=== PATIENT | female | born 1940 | race Caucasian/White ===

== ENCOUNTER 2020-08-27 06:47 | Observation (INO) ==
[2020-08-27] MEDS ORDERED: METOPROLOL TARTRATE 1 MG/ML AMPUL IV ONE (07:12)
[2020-08-27 07:21] LABS: Hematocrit 40.2 % (37.0-47.0); Mean Cell Volume 90.7 fl (78-100); Mean Corpuscular Hemoglobin 29.3 pg (27-31); Mean Corpuscular Hgb Conc 32.3 g/dl (32-36); Mean Platelet Volume 9.7 fl (8-12.5); Neutrophil # 10.3 K/mm3 (1.3-6.0); Neutrophil % 80.3 % (42-75.0); Platelet Count 278 K/mm3 (150-450); Red Blood Count 4.43 M/mm3 (4.2-5.4); Red Cell Distribution Width 13.5 % (11.5-14.0); White Blood Count 12.9 K/mm3 (4.0-10.5)
[2020-08-27 07:26] LABS: Prothrombin Time (Patient) 10.9 Seconds (9.1-10.7)
[2020-08-27 07:29] LABS: INR 1.05 INR (0.92-1.08); Partial Thrombolplastin Time 27.2 Seconds (24-32)
[2020-08-27 07:37] LABS: ALT 20 U/L (19-67); AST 15 U/L (0-48); Albumin * 3.6 gm/dl (3.4-5.0); Alkaline Phosphatase * 137 U/L (50-170); Anion Gap 15.9 mmol/L (6.8-13.8); BNP * 1270 pg/mL (5-550); BUN/Creatinine Ratio 18.4 (9.0-21.6); Bilirubin, Total 0.9 mg/dL (0.0-1.1); Blood Urea Nitrogen 16 mg/dL (3-23); Ca. Corrected For Albumin 8.8 mg/dL (8.4-10.2); Calcium * 8.8 mg/dL (7.9-10.9); Carbon Dioxide 22.9 mmol/L (24-32.6); Chloride 104 mmol/L (97-106); Glucose * 140 mg/dL (70-110); Potassium 3.8 mmol/L (3.4-4.6); Sodium 139 mmol/L (132-142); Total Protein 7.6 gm/dL (6.2-8.2); Troponin I Less than 0.017 ng/mL (0.00-0.10)
[2020-08-27] MEDS ORDERED: FUROSEMIDE 10 MG/ML VIAL IV ONE ×2 (08:13→11:13)
--- NOTE | 2020-08-27 08:22 | ERNOTE ---
Chest Pain/Cardiac HPI Date of Service: 08/27/20 Chief Complaint: Chest Pain Time Seen by Provider: 08/27/20 07:05 Immunizations: IMMUNIZATION HX Immunizations Up to Date Yes History of Influenza Vaccine Yes Hx Pneumococcal Vaccination Yes Allergies/Adverse Reactions: Allergies adhesive tape Allergy (Mild, Verified 08/27/20 06:56) Irritation Latex, Natural Rubber Allergy (Mild, Verified 08/27/20 06:56) Redness, swelling amoxicillin trihydrate [From Augmentin] Allergy (Unknown, Verified 08/27/20 06:56) unsure potassium clavulanate [From Augmentin] Allergy (Unknown, Verified 08/27/20 06:56) unsure Home Medications: HOME MEDICATIONS alendronate 70 mg tablet 70 mg PO QWEEK #12 tab 05/12/20 [Last Taken Unknown] amlodipine 5 mg tablet 5 mg PO DAILY #90 tab 05/12/20 [Last Taken Unknown] fluticasone propionate 50 mcg/actuation nasal spray,suspension See Rx Instructions .ROUTE .COMPLEX #48 gram 05/12/20 [Last Taken Unknown] rivaroxaban 20 mg tablet 20 mg PO DAILY #90 tab 05/12/20 [Last Taken Unknown] lovastatin 20 mg tablet 20 mg PO DAILY #90 tab 05/17/20 [Last Taken Unknown] metoprolol tartrate 25 mg tablet 25 mg PO BID #180 tab 06/10/20 [Last Taken Unknown] levothyroxine 75 mcg capsule 75 mcg PO DAILY #90 cap 06/15/20 [Last Taken Unknown] Narrative: Patient is an 80-year-old female that presents to the emergency department with complaint of midsternal chest pressure for the last 48 hours. Patient states it awakened her from sleep this morning and she came in for further evaluation. Patient has significant history of aortic valve stenosis, atrial fibrillation, and hypertension. Patient states that she did not take her a.m. medication. Patient rates her pain at a 2 on a scale of 1-10. Date (Duration): 08/25/20 Timing: constant Severity/Quality: mild Location: substernal Chest Pain Radiation: no radiation Activities at Onset: sleep Modifying Factors - Improves: Present: other - Patient took omeprazole Modifying Factors - Worsens: Present: exercise Nitro Today/Relief: no nitro taken today Aspirin Treatment Today: no aspirin today Associated Symptoms: Present: other - Chest pressure Prior Chest Pain/Cardiac Workup: Reports: stress test - 2019 was unremarkable Review of Systems - Review of Systems Constitutional: Present: no symptoms reported EYE: Present: no symptoms reported ENT: Present: no symptoms reported Respiratory: Present: no symptoms reported Cardiology: Present: chest pain Gastrointestinal/Abdominal: Present: no symptoms reported Genitourinary: Present: no symptoms reported Musculoskeletal: Present: no symptoms reported Skin: Present: no symptoms reported Neurological: Present: no symptoms reported Endocrine: Present: no symptoms reported Hematologic/Lymphatic: Present: no symptoms reported Psych: Present: no symptoms reported Medical History (Last Reviewed 08/27/20 @ 08:18 by Delaney Hernadez MD) COVID-19 vaccine series completed (Acute) COVID-19 vaccine administered (Acute) Sinus disease (Chronic) Onset Date: Unknown Pulmonary nodules (Chronic) Onset Date: Unknown stable Osteoporosis (Chronic) Onset Date: Unknown Fosamax 75 mg once a week She was instructed to take calcium with vitamin D Hypothyroidism (Chronic) Onset Date: Unknown She is having symptom of hypothyroidism with elevated TSH of 8 so her dose of levothyroxine will be increased back to 75 mcg a day TSH would be repeated in 1 month Hypertension (Chronic) Onset Date: Unknown Uncontrolled hypertension I will add Norvasc 2.5 mg a day and continue metoprolol 25 mg twice daily Hyperlipemia (Chronic) Onset Date: Unknown Heart murmur (Chronic) Onset Date: Unknown Atrial fibrillation (Chronic) Onset Date: Unknown Nonrheumatic aortic valve stenosis Paroxysmal atrial fibrillation Wears dentures Wears glasses Surgical History: Surgical History (Last Reviewed 08/27/20 @ 08:18 by Delaney Hernadez MD) H/O breast biopsy Onset Date: ~1978 History of partial hysterectomy Onset Date: ~1972 History of stress test Onset Date: ~03/14/16 No angina, no EKG changes, normal stress test Hx of colonoscopy Onset Date: ~2007 Hx of removal of cyst Onset Date: ~1985 1960, 1985 - cyst removed from jaw, jaw implants Loss of teeth due to extraction Onset Date: ~1956 upper teeth pulled and plate in place Family History: Family History (Last Reviewed 08/27/20 @ 08:18 by Delaney Hernadez MD) Father , Age 54 Lung cancer Mother , Age 73 Heart disease Brother , Age 23 Accidental drowning Brother Hypertension Social History: (Last Reviewed 08/27/20 @ 08:19 by Delaney Hernadez MD) Social History: adopted: No Marital status: household members: spouse current occupational status: retired Highest level of school completed/degree received: high school graduate Service: No Tobacco: Smoking Status: Former smoker Smoking End Date: 04/23/69 Alcohol: alcohol intake: current Alcohol type: wine alcohol intake frequency: 0-2 drinks per day Substance Use: substance use type: does not use Dietary Habits: caffeine: Yes Type: coffee Physical Exam - Physical Exam General Appearance: Present: wd/wn, alert, mild distress Head Exam: Present: normal inspection, no evidence of injury Eye Exam: Normal inspection: bilateral Ears, Nose, Throat: Present: normal ENT inspection Neck: Present: normal inspection, nontender Respiratory: Present: no respiratory distress, normal breath sounds, no accessory muscle use, chest nontender, lungs clear Cardiovascular/Chest: Present: regular rate, rhythm, normal peripheral pulses, systolic murmur Peripheral Pulses: N=norm/S=strong/W=weak/B=bound/A=absent: Radial (R): Normal, Radial (L): Normal, Dorsalis-pedis (R): Normal, Dorsalis-pedis (L): Normal Gastrointestinal/Abdominal: Present: normal bowel sounds, nontender, nondistended, soft, no organomegaly Back Exam: Present: normal inspection, normal range of motion, no CVA tenderness, no vertebral tenderness Extremity Exam: Present: normal inspection Neurological Exam: Present: alert, oriented, normal mood/affect, no motor/sensory deficits Skin Exam: Present: normal color, warm/dry Progress - Results and Orders Patient's Lab Results:: I have reviewed the patient's lab results. - Vital Signs Patient's Vital Signs:: I have reviewed the patient's vital signs. Vital Signs: Vital Signs 08/27/20 06:48 08/27/20 07:15 08/27/20 07:23 Temperature 36.3 C Pulse Rate 115 H 120 H 89 Respiratory Rate 22 H 20 Blood Pressure 140/68 149/67 O2 Sat by Pulse Oximetry 97 97 08/27/20 07:42 Temperature Pulse Rate 85 Respiratory Rate 22 H Blood Pressure 128/54 O2 Sat by Pulse Oximetry 97 - Progress/Reassessment Chief Complaint: Chest Pain Progress:: Improved - pateint resting comfortably Plan - Plan Plan: Patient has elevated BNP with history of aortic valve stenosis. Dr. Reynolds is contacted. Patient will be admitted and diuresed. Patient was reassessed and is resting comfortably heart rate is decreased to 85 with blood pressure 128/54. Troponin is within normal limits. 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
[2020-08-27] MEDS ORDERED: ACETAMINOPHEN 500 MG TABLET PO PRN (09:08)
[2020-08-27] MEDS ORDERED: FLUTICASONE PROPIONATE 120 SPRAY INHALER NS SCH (09:15)
[2020-08-27] MEDS ORDERED: amLODIPine BESYLATE 5 MG TABLET PO SCH (09:15)
[2020-08-27] MEDS ORDERED: FUROSEMIDE 10 MG/ML VIAL IV SCH ×2 (09:15→21:00)
[2020-08-27] MEDS ORDERED: METOPROLOL TARTRATE 25 MG TABLET PO SCH (09:15)
[2020-08-27] MEDS ORDERED: RIVAROXABAN 20 MG TABLET PO SCH (09:15)
[2020-08-27] MEDS ORDERED: LEVOTHYROXINE SODIUM 75 MCG TABLET PO SCH (10:00)
[2020-08-27] MEDS ORDERED: NITROGLYCERIN 0.4 MG/TAB BTL SL PRN (11:29)
--- NOTE | 2020-08-27 13:10 | HP ---
Chief Complaint - Chief Complaint Date of Service: 08/27/20 Time of Service: 13:01 Chief Complaint: I had chest pressure this morning. History of Present Illness: 80-year-old female with past medical history of CHF, atrial fibrillation, aortic stenosis, hypertension, osteoporosis, and hypothyroidism was brought to the ER for evaluation of retrosternal chest pain with radiation to the neck and nuchal region that started this morning while in bed. Patient reports going to bed as usual last night but during the night she developed a pressure in her mid chest that radiated up to her neck. She denies any shortness of breath or dizziness with the chest discomfort but said the symptom increase in intensity so she became concerned. Patient reports seeing a cushion maker who is monitoring her for aortic stenosis, CHF, as well as atrial fibrillation. At her last visit with him she was told she no longer needed diuretics and was stable with that her condition. Is been over 2 years since the patient has taken any water pills and when asked she admits to occasional pedal edema and even swelling in her hands. She denies any dyspnea at rest or on exertion. Once in the ER the patient was treated with diuretics and beta-blockers for adequate rate control and for decompensated CHF. She was found to have an elevated BNP confirming the decompensation of her CHF. Medical History (Last Updated 08/27/20 @ 11:55 by Lora Olmedo RN) COVID-19 vaccine series completed (Acute) COVID-19 vaccine administered (Acute) Sinus disease (Chronic) Onset Date: Unknown Pulmonary nodules (Chronic) Onset Date: Unknown stable Osteoporosis (Chronic) Onset Date: Unknown Fosamax 75 mg once a week She was instructed to take calcium with vitamin D Hypothyroidism (Chronic) Onset Date: Unknown She is having symptom of hypothyroidism with elevated TSH of 8 so her dose of levothyroxine will be increased back to 75 mcg a day TSH would be repeated in 1 month Hypertension (Chronic) Onset Date: Unknown Uncontrolled hypertension I will add Norvasc 2.5 mg a day and continue metoprolol 25 mg twice daily Hyperlipemia (Chronic) Onset Date: Unknown Heart murmur (Chronic) Onset Date: Unknown Atrial fibrillation (Chronic) Onset Date: Unknown Rosacea Nonrheumatic aortic valve stenosis Paroxysmal atrial fibrillation Wears dentures Wears glasses Surgical History: Surgical History (Last Updated 08/27/20 @ 11:56 by Lora Olmedo RN) H/O breast biopsy Onset Date: ~1978 History of partial hysterectomy Onset Date: ~1972 History of stress test Onset Date: ~03/14/16 No angina, no EKG changes, normal stress test Hx of colonoscopy Onset Date: ~2007 Hx of removal of cyst Onset Date: ~1985 - cyst removed from jaw, jaw implants Loss of teeth due to extraction Onset Date: ~1956 upper teeth pulled and plate in place, lower teeth titanium plates Family History: Family History (Last Reviewed 08/27/20 @ 12:02 by Lora Olmedo RN) Father , Age 54 Lung cancer Mother , Age 73 Heart disease Brother , Age 23 Accidental drowning Brother Hypertension Social History: (Last Reviewed 08/27/20 @ 12:03 by Lora Olmedo RN) Social History: adopted: No Marital status: lives independently: Yes current occupational status: retired Highest level of school completed/degree received: high school graduate Service: No Tobacco: Smoking Status: Former smoker Smoking End Date: 04/23/69 Alcohol: alcohol intake: current Alcohol type: wine alcohol intake frequency: a few times a month Substance Use: substance use type: does not use Dietary Habits: caffeine: Yes Type: carbonated beverages Peds Patient Hx - Developmental: No Pertinent Hx Peds Patient Hx - Medical: No Pertinent Hx Peds Patient Hx - Cardiac/Respiratory: No Pertinent Hx Peds Patient Hx - Surgical: No Surgical History Patient History - Cancer: No Hx of Cancer Review Of Systems (GEN) - Review of Systems Generalized/Overall Review: Present: No Symptoms Reported EENTM: Present: No Symptoms Reported Respiratory: Present: Cough - Chronic dry cough for more than a year Cardiac: Present: Chest Pain - Retrosternal chest pressure Abdominal: Present: No Symptoms Reported Genitourinary: Present: No Symptoms Reported Musculoskeletal: Present: No Symptoms Reported Neurological: Present: No Symptoms Reported Skin: Present: No Symptoms Reported Endocrine: Present: No Symptoms Reported Immunizations: IMMUNIZATION HX Immunizations Up to Date Yes History of Influenza Vaccine Yes Hx Pneumococcal Vaccination Yes Allergies/Adverse Reactions: Allergies Allergy/AdvReac Type Severity Reaction Status Date / Time adhesive tape Allergy Mild Irritation Verified 08/27/20 12:04 Latex, Natural Rubber Allergy Mild Redness, Verified 08/27/20 12:04 swelling amoxicillin trihydrate Allergy Unknown unsure Verified 08/27/20 12:04 [From Augmentin] potassium clavulanate Allergy Unknown unsure Verified 08/27/20 12:04 [From Augmentin] Home Medications: HOME MEDICATIONS alendronate 70 mg tablet 70 mg PO QWEEK #12 tab 05/12/20 [Last Taken 08/21/20] amlodipine 5 mg tablet 5 mg PO DAILY #90 tab 05/12/20 [Last Taken Unknown] rivaroxaban 20 mg tablet 20 mg PO DAILY #90 tab 05/12/20 [Last Taken Unknown] metoprolol tartrate 25 mg tablet 25 mg PO BID #180 tab 06/10/20 [Last Taken Unknown] levothyroxine 75 mcg capsule 75 mcg PO DAILY #90 cap 06/15/20 [Last Taken Unknown] Fluticasone Propionate [Flonase] 2 spray NS DAILY PRN 08/27/20 [Last Taken Unknown] Lovastatin [Altoprev] 20 mg PO DAILY 08/27/20 [Last Taken Unknown] Exam - Exam Vital Signs: Vital Signs - Last Taken Temp 36.8 C 08/27/20 10:26 Pulse 83 08/27/20 11:46 Resp 16 08/27/20 10:26 BP 146/63 08/27/20 11:46 Pulse Ox 96 08/27/20 10:26 Constitutional: Present: Alert, Oriented x3, Cooperative, Well developed, Well nourished, No distress, Elderly Eye Exam: bilateral eye: normal inspection, PERRL, EOMI Neck: Present: non-tender, full range of motion, supple, normal inspection, trachea midline Back Exam: Present: normal inspection, no CVA tenderness, no vertebral tenderness Breasts: Present: Exam deferred, Nontender Respiratory: Present: chest non-tender, lungs clear, normal breath sounds, no respiratory distress, no accessory muscle use Cardiovascular/Chest: Present: normal peripheral pulses, regular rate, rhythm, no chest tenderness, no edema, no gallop, no JVD, no murmur, no rub, edema - 1+ bilateral pedal edema Peripheral Pulses: dorsalis-pedis (R): 2+, dorsalis-pedis (L): 2+ Abdomen: Present: Normal bowel sounds, soft, nontender, nondistended, no rebound tenderness, no hepatospenomegaly, no masses /Rectal: Present: Exam deferred Extremity: Present: normal range of motion, non-tender, normal inspection, no calf tenderness, pedal edema - 1+ bilateral pedal edema Skin Exam: Present: normal color, warm/dry, no cyanosis Lymphatic: Present: no adenopathy 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, normal cerebellar test, no motor/sensory deficits, alert, normal mood/affect, oriented x 3 Appearance: Present: appropriate appearance, appropriate insight, neat, no memory impairment Eye contact: Present: cooperative, good eye contact, normal speech Thoughts: Present: normal thought pattern Diagnostic Studies: Abnormal Lab Results 08/27/20 08/27/20 08/27/20 Range/Units 07:17 07:17 07:17 WBC 12.9 H (4.0-10.5) K/mm3 Immature Gran # (Auto) 0.04 H (0.000-0.0310) K/mm3 Neutrophils % 80.3 H (42-75.0) % Lymphocytes % 9.3 L (20-51) % Monocytes % 9.1 H (0.0-9) % Neutrophils # 10.3 H (1.3-6.0) K/mm3 Lymphocytes # 1.19 L (1.5-3.5) k/mm3 Monocytes # 1.2 H (0.0-1.0) k/mm3 PT 10.9 H (9.1-10.7) Seconds Carbon Dioxide 22.9 L (24-32.6) mmol/L Anion Gap 15.9 H (6.8-13.8) mmol/L Random Glucose 140 H (70-110) mg/dL B-Natriuretic Peptide 1270 H (5-550) pg/mL Laboratory Results WBC 12.9 K/mm3 (4.0-10.5) H 08/27/20 07:17 RBC 4.43 M/mm3 (4.2-5.4) 08/27/20 07:17 Hgb 13.0 gm/dL (12.5-16.0) 08/27/20 07:17 Hct 40.2 % (37.0-47.0) 08/27/20 07:17 MCV 90.7 fl (78-100) 08/27/20 07:17 MCH 29.3 pg (27-31) 08/27/20 07:17 MCHC 32.3 g/dl (32-36) 08/27/20 07:17 RDW 13.5 % (11.5-14.0) 08/27/20 07:17 Plt Count 278 K/mm3 (150-450) 08/27/20 07:17 MPV 9.7 fl (8-12.5) 08/27/20 07:17 Immature Gran % (Auto) 0.30 % (0.001-0.429) 08/27/20 07:17 Immature Gran # (Auto) 0.04 K/mm3 (0.000-0.0310) H 08/27/20 07:17 Neutrophils % 80.3 % (42-75.0) H 08/27/20 07:17 Lymphocytes % 9.3 % (20-51) L 08/27/20 07:17 Monocytes % 9.1 % (0.0-9) H 08/27/20 07:17 Eosinophils % 0.2 % (0.0-3.0) 08/27/20 07:17 Basophils % 0.8 % (0.0-1.0) 08/27/20 07:17 Nucleated RBC % 0.0 k/mm3 (0-1) 08/27/20 07:17 Neutrophils # 10.3 K/mm3 (1.3-6.0) H 08/27/20 07:17 Lymphocytes # 1.19 k/mm3 (1.5-3.5) L 08/27/20 07:17 Monocytes # 1.2 k/mm3 (0.0-1.0) H 08/27/20 07:17 Eosinophils # 0.0 k/mm3 (0.0-0.7) 08/27/20 07:17 Absolute Basophils 0.1 k/mm3 (0.0-0.1) 08/27/20 07:17 PT 10.9 Seconds (9.1-10.7) H 08/27/20 07:17 INR (Anticoag Therapy) 1.05 INR (0.92-1.08) 08/27/20 07:17 PTT ([place]) 27.2 Seconds (24-32) 08/27/20 07:17 Sodium 139 mmol/L (132-142) 08/27/20 07:17 Plasma Sodium 140 mmol/L (130-142) 08/27/20 07:17 Potassium 3.8 mmol/L (3.4-4.6) 08/27/20 07:17 Chloride 104 mmol/L (97-106) 08/27/20 07:17 Carbon Dioxide 22.9 mmol/L (24-32.6) L 08/27/20 07:17 Anion Gap 15.9 mmol/L (6.8-13.8) H 08/27/20 07:17 BUN 16 mg/dL (3-23) 08/27/20 07:17 Creatinine 0.87 mg/dL (0.4-1.4) 08/27/20 07:17 Est GFR (Non-Af Amer) 66 mL/min (60-130) 08/27/20 07:17 BUN/Creatinine Ratio 18.4 (9.0-21.6) 08/27/20 07:17 Random Glucose 140 mg/dL (70-110) H 08/27/20 07:17 Calcium 8.8 mg/dL (7.9-10.9) 08/27/20 07:17 Calcium Adj for Albumin 8.8 mg/dL (8.4-10.2) 08/27/20 07:17 Total Bilirubin 0.9 mg/dL (0.0-1.1) 08/27/20 07:17 AST 15 U/L (0-48) 08/27/20 07:17 ALT 20 U/L (19-67) 08/27/20 07:17 Alkaline Phosphatase 137 U/L (50-170) 08/27/20 07:17 Troponin I Less than 0.017 ng/mL (0.00-0.10) 08/27/20 07:17 B-Natriuretic Peptide 1270 pg/mL (5-550) H 08/27/20 07:17 Total Protein 7.6 gm/dL (6.2-8.2) 08/27/20 07:17 Albumin 3.6 gm/dl (3.4-5.0) 08/27/20 07:17 SARS-CoV-2 (PCR) Not detected (NotDetected) 08/27/20 08:23 Assessment/Plan - Narrative Narrative: Patient was evaluated medical chart was reviewed and decision to admit to [facility] for intrahospital care and treatment of decompensated CHF and atrial fibrillation was made. Patient is currently being treated with IV diuretics as well as beta-blockers for adequate rate control. Currently she maintains stable vitals and denies any recurrence of chest pressure. As a precaution nitroglycerin has been ordered to be used on a as needed basis and her at home medications have been resumed. We will order an echocardiogram to evaluate c ardiac valves and EF in order to further evaluate his CHF. In the meantime we will keep the patient telemetry for close monitoring and watch her closely. - Assessment/Plan (1) Paroxysmal atrial fibrillation Problem: Chronic (2) Chronic cough Problem: Chronic (3) CHF due to valvular disease Problem: Acute (4) Osteoporosis Problem: Chronic Qualifiers: (5) Hypothyroidism Problem: Chronic Qualifiers: (6) Atrial fibrillation Problem: Chronic Qualifiers: (7) Decompensated heart failure Problem: Acute
--- NOTE | 2020-08-27 17:47 | DS ---
(1) Paroxysmal atrial fibrillation Problem: Chronic (2) Chronic cough Problem: Chronic (3) CHF due to valvular disease Problem: Acute (4) Osteoporosis Problem: Chronic Qualifiers: (5) Hypothyroidism Problem: Chronic Qualifiers: (6) Atrial fibrillation Problem: Chronic Qualifiers: (7) Decompensated heart failure Problem: Acute Date of Discharge:: 08/27/20 Hospital Course: 81-year-old female was admitted for decompensated CHF and chest discomfort was evaluated at bedside this afternoon and was found to be afebrile and in no acute distress. Patient reports significant provement in her symptoms, and denies any recurrence of any chest pressure or pain. She has maintained stable vitals and has responded favorably to intrahospital treatment with IV diuretics and her routine medications. The patient underwent an echocardiogram today which revealed adequate EF of 55 to 60%, and only mild aortic stenosis which was already diagnosed. After discussing the results the patient agreed with being discharged home with instructions to follow-up with her PCP and her book reviewer. We will discharge her with additional days of oral diuretics and sublingual nitroglycerin to be used as needed for chest discomfort or pain. Procedures Performed: none Results and Findings: Lab Pending Results 08/27/20 07:17: WBC 12.9 H, RBC 4.43, Hgb 13.0, Hct 40.2, MCV 90.7, MCH 29.3, MCHC 32.3, RDW 13.5, Plt Count 278, MPV 9.7, Immature Gran % (Auto) 0.30, Immature Gran # (Auto) 0.04 H, Neutrophils % 80.3 H, Lymphocytes % 9.3 L, Monocytes % 9.1 H, Eosinophils % 0.2, Basophils % 0.8, Nucleated RBC % 0.0, Neutrophils # 10.3 H, Lymphocytes # 1.19 L, Monocytes # 1.2 H, Eosinophils # 0.0, Absolute Basophils 0.1 08/27/20 07:17: PT 10.9 H, INR (Anticoag Therapy) 1.05, PTT ([place]) 27.2 08/27/20 07:17: Sodium 139, Plasma Sodium 140, Potassium 3.8, Chloride 104, Carbon Dioxide 22.9 L, Anion Gap 15.9 H, BUN 16, Creatinine 0.87, Est GFR (Non- Af Amer) 66, BUN/Creatinine Ratio 18.4, Random Glucose 140 H, Calcium 8.8, Calcium Adj for Albumin 8.8, Total Bilirubin 0.9, AST 15, ALT 20, Alkaline Phosphatase 137, Troponin I Less than 0.017, B-Natriuretic Peptide 1270 H, Total Protein 7.6, Albumin 3.6 08/27/20 08:23: SARS-CoV-2 (PCR) Not detected Discharge Location: Home Disposition: Home self-care Condition: Good Face to Face Encounter completed per [facility] Guidelines: No Discharge Activity: Activity as tolerated Discharge Diet: Low salt Referrals: Brenton Workman MD [Primary Care Provider] - Prescriptions (Any new or edited meds): Furosemide 20 mg PO DAILY #30 tab Transmission Status: Pending to [facility] #[id number] Nitroglycerin [Nitrostat] 0.4 mg SL Q5MIN PRN #20 btl PRN Reason: Chest Pain Transmission Status: Pending to [facility] #[id number] Complete Home Medications List: Complete Home Medication List: alendronate 70 mg tablet 70 mg PO QWEEK #12 tab 05/12/20 amlodipine 5 mg tablet 5 mg PO DAILY #90 tab 05/12/20 rivaroxaban 20 mg tablet 20 mg PO DAILY #90 tab 05/12/20 metoprolol tartrate 25 mg tablet 25 mg PO BID #180 tab 06/10/20 levothyroxine 75 mcg capsule 75 mcg PO DAILY #90 cap 06/15/20 Fluticasone Propionate [Flonase] 2 spray NS DAILY PRN 08/27/20 Furosemide 20 mg PO DAILY #30 tab 08/27/20 Lovastatin [Altoprev] 20 mg PO DAILY 08/27/20 Nitroglycerin [Nitrostat] 0.4 mg SL Q5MIN PRN #20 btl 08/27/20
[2020-08-27 18:22] VITALS: BP 113/47
[2020-08-27] MEDS ORDERED: SIMVASTATIN 10 MG TABLET PO SCH (21:00)
[2020-08-27] MEDS ORDERED: PANTOPRAZOLE SODIUM 20 MG TABLET.DR PO SCH (21:00)
[2020-08-30] MEDS ORDERED: ALENDRONATE SODIUM 70 MG TABLET PO SCH (07:00)
--- NOTE | 2020-09-01 12:03 | ECHO ---
This report is available in the EMR
== END 2020-08-27 19:18 | disposition home or self-care (01) ==
LOC: MS 06:47 → ER 06:47 → MS 09:30
PROVIDERS: ADMIT Family Medicine; ATTEND Family Medicine